=== PATIENT | female | born 1965 | race Caucasian/White ===

== ENCOUNTER 2017-06-06 18:11 | Emergency (ER) | payer MEDICAID ==
[~2017-06-06] VITALS: Ht 152.4 cm; Wt 74.8 kg
[2017-06-06 19:34] VITALS: BP 118/80
== END 2017-06-06 19:20 | disposition home or self-care (01) ==
LOC: ED 18:11
DX: J30.9 Allergic rhinitis, unspecified (principal); J02.9 Acute pharyngitis, unspecified; H92.09 Otalgia, unspecified ear
CPT/HCPCS: J1100

== ENCOUNTER 2018-09-27 23:02 | Emergency (ER) | payer MEDICAID ==
[~2018-09-27] VITALS: Ht 154.9 cm; Wt 75.9 kg
[2018-09-27 23:14] VITALS: Ht 154.9 cm; Wt 75.9 kg
[2018-09-28 01:36] VITALS: BP 132/68
== END 2018-09-28 01:36 | disposition home or self-care (01) ==
LOC: ED 23:02
DX: H11.32 Conjunctival hemorrhage, left eye (principal)

== ENCOUNTER 2019-12-10 19:02 | Emergency (ER) | payer MEDICAID ==
[~2019-12-10] VITALS: Ht 162.6 cm; Wt 78.6 kg
[2019-12-10 19:14] VITALS: Ht 162.6 cm; Wt 78.6 kg
[2019-12-10 21:07] VITALS: BP 128/81
== END 2019-12-10 21:07 | disposition home or self-care (01) ==
LOC: ED 19:02
DX: T78.1XXA Other adverse food reactions, not elsewhere classified, initial encounter (principal); L50.9 Urticaria, unspecified; X58.XXXA Exposure to other specified factors, initial encounter
CPT/HCPCS: J1200; J2920; J3490